=== PATIENT | female | born 1995 | race Caucasian/White ===

== ENCOUNTER 2023-09-26 07:31 | Inpatient (IN) ==
[2023-09-26] MEDS ORDERED: LIDOCAINE 1% LOCAL 20 ML VIAL INFIL PRN (08:04)
--- NOTE | 2023-09-26 08:15 | History & Physical Report ---
Date of Service September 26, 2023 Assessment & Plan (1) Encounter for induction of labor: Plan L&D order set placed, including, CBC w/out diff, blood bank hold, IV fluids (LR, 125 mL/hr), and Oxytocin (0.06 U/hr for labor augmentation), and Oxytocin, PRN (20 U/hr, for bleeding). External heart monitor and external tocodynamometer already placed. Patient will consider AROM, balloon catheter, epidural as she progresses. Admission and Anticipated Discharge Date Admission Date: September 26, 2023 History of Present Illness Chief Complaint: induction of labor Primary Care Provider: ALBERTINA PCP , 40 weeks, 5 days, confirmed via (ultrasound). Here for (Induction). There have been no complications with this . Has been attending OB appointments regularly. Currently taking docusate, Miralax, and pre- vitamins. Contractions: few, very far apart Fluid or Blood loss: none Movement: active Labs - Blood type, O+ - Antibody screen, neg - Hg, pending - Hct, pending - Wbc, pending - Plt, pending - Rubella, immune - VDRL/RPR, non-reactive - Gonorrhea, not detected - Chlamydia, not detected - HIV, non-reactive - HbSAg, non-reactive - GBS, neg - Glucose tolerance x 2, 105 (WNL) Allergies Allergy/AdvReac Type Severity Reaction Status Date / Time amoxicillin Allergy Hives Verified 09/23/23 10:45 Home Medications Medication Instructions Recorded Confirmed Type docusate sodium 100 mg capsule 100 mg PO DAILY 06/03/23 09/25/23 History (Colace) polyethylene glycol 3350 17 gram 17 g PO DAILY PRN Constipation 09/25/23 09/25/23 History oral powder packet (Miralax) [id number] 1 mg 1 tab PO DAILY 09/25/23 09/25/23 History tablet Past Med/Surg History Problem List (Updated 09/26/23 @ 08:49 by Martín Tomlinson MD) Encounter for induction of labor 40 weeks gestation of Dilated renal pelvis Seasonal allergies (02/12/20) Supervision of normal first Oligomenorrhea Medical History (Updated 09/26/23 @ 08:49 by Martín Tomlinson MD) Varicella vaccination COVID-19 (~2021) Surgical History [place] teeth extracted Family History (Updated 02/18/23 @ 09:56 by Sylwia Avila) Grandmother (Paternal) Breast cancer Grandfather (Maternal) Colorectal cancer Denies family history of Ovarian cancer Social History (Updated 02/18/23 @ 09:58 by Sylwia Avila) Smoking Status: Never smoker Do You Dip or Chew Tobacco: No; Hx Alcohol Use: No Hx Substance Use: No Preferred Language: Indonesian Communication Ability: Effective Computer Network Engineer Required: No Beliefs That Will Affect Care: None marital status: marital status details: Kyree Mays(28) [phone] Current Living Situation: Spouse Current Living Situation Comment: 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 current occupational status: employed current occupation: Speech therapist-private practice / [employer] Feels Safe at Home: Yes Safety Concerns: Feels Safe At This Time Diet: regular during the past year weight has: remained stable Physical Activity Frequency: Daily Physical Activity Frequency Comment: walks [facility] Assistive Devices: None Review of Systems Constitutional: no fever, no chills and no body aches Eyes: no diplopia and no worsening vision Ear, Nose, Mouth, Throat: no nasal congestion, no nasal discharge and no sore throat Respiratory: no cough, no chest congestion and no dyspnea Cardiovascular: no chest pain and no palpitations Gastrointestinal: + abdominal pain (cramping pain); no teddy sea, no vomiting (no vomiting since 8.30 pm last night) and no constipation (last BM this morning; has been on docusate and Miralax) Genitourinary: no dysuria, no urinary frequency (nothing against 3rd trimester background increase) and no urinary urgency Integumentary: no rash and no pruritus Neurologic: no tingling, no numbness and no headache(s) Physical Exam Constitutional: WD/WN, vitals as above Respiratory: normal respiratory effort, lungs clear to auscultation Cardiovascular: RRR, no murmur, no edema Extremities: normal capillary refill and + pedal edema (+1 edema in feet, edema of ); no calf tenderness Gastrointestinal (Abdomen): Inspection/Auscultation: abdomen normal to inspection, normal bowel sounds and + significant pannus (gravid uterus) Psychiatric: A+Ox3, euthymic affect Genitourinary: Manual OB Exam: + cervical dilation 4 cm, + cervical effacement 50% and + station -2 OB Exam Monitor Tracing: + external FHT monitor used, + external uterine monitor used, + category I and + normal FHT variability Results & Data Results & Data Vital Signs (Past 12 Hours) Vital Signs Temp Pulse Resp BP 09/26/23 07:54 106 H 121/76 09/26/23 07:51 36.6 C 106 H 16 /76 Supervising Physician Co-Signing Physician Notes Resident Physician Supervision Note: I interviewed and examined the patient. Discussed with Dr. Tomlinson and agree with findings and plan as documented in the note. Any exceptions or clarifications are listed here: 27yo @ 40 08/13, IOL for postdates. Carrillo bulb was placed last night, fell out overnight. Plan to start pitocin, ok for epidural when she desires. Documented By: Tricia Blanco, DO
[2023-09-26] MEDS: LACTATED RINGER'S 1,000 ML IV PRN (08:30)
[2023-09-26] MEDS: OXYTOCIN 30 UNITS/NSS 30 UNITS/500 ML BAG IV PRN ×2 (08:31→23:10)
[2023-09-26 08:46] LABS: Hematocrit (blood only) 37.3 % (37.0-47.0); Hemoglobin 12.4 g/dl (12.0-16.0); Mean Corpuscular Hemoglobin 27.9 pg (25.0-34.0); Mean Corpuscular Hgb Conc 33.2 g/dL (32.0-36.0); Mean Platelet Volume 10.3 fL (9.4-12.4); Platelet Count 289 K/uL (130-400); RDW Coefficient of Variation 13.6 % (11.5-14.5); RDW Standard Deviation 41.6 fL (36.4-46.3); Red Blood Count 4.44 M/uL (4.20-5.40); White Blood Count 15.56 K/ul (4.8-10.8)
--- NOTE | 2023-09-26 13:21 | Anesthesiology Consultation ---
Date of Service September 26, 2023 Assessment & Plan Chart Review Chart Review: Acceptable Risk for Labor Epidural Consults Requested none History Height/Weight Height: 5 ft 4 in Weight: 82.554 kg Allergies Allergy/AdvReac Type Severity Reaction Status Date / Time amoxicillin Allergy Hives Verified 09/23/23 10:45 Medications Home Medications Medication Instructions Recorded Confirmed Last Taken docusate sodium 100 mg capsule 100 mg PO DAILY 06/03/23 09/26/23 09/26/23 05:30 (Colace) polyethylene glycol 3350 17 gram 17 g PO DAILY PRN Constipation 09/25/23 09/26/23 09/26/23 05:30 oral powder packet (Miralax) [id number] 1 mg 1 tab PO DAILY 09/25/23 09/26/23 09/26/23 05:30 tablet Active Medications Generic Name Dose Route Start Last Admin Trade Name Freq PRN Reason Stop Dose Admin Oxytocin 30 units in 500 mls @ 17 mls/hr 09/26/23 08:05 09/26/23 12:30 Pitocin 30 Units/Nss IV 09/28/23 08:04 1.02 units/hr .Q24H PRN 17 mls/hr Labor Induction/Augmentation Titration Protocol 1.02 UNITS/HR Lactated Ringer's 1,000 mls @ 125 mls/hr 09/26/23 08:04 09/26/23 08:30 Lr IV 09/28/23 08:03 125 mls/hr .Q8H PRN Administration L&D Protocol Protocol Past Medical History Medical History (Updated 09/26/23 @ 08:49 by Martín Tomlinson MD) Varicella vaccination COVID-19 (~2020) Past Family History Family History (Updated 02/18/23 @ 09:56 by Sylwia Avila) Grandmother (Paternal) Breast cancer Grandfather (Maternal) Colorectal cancer Denies family history of Ovarian cancer Past Surgical History Surgical History [place] teeth extracted Social History Smoking Status: Never smoker Do You Dip or Chew Tobacco: No Hx Alcohol Use: No Hx Substance Use: No substance use type: does not use Physical Exam Vital Signs Last Vital Signs Temp 36.6 C 09/26/23 10:56 Pulse 83 09/26/23 13:18 Resp 16 09/26/23 10:56 BP 138/78 09/26/23 13:14 Pulse Ox 99 09/26/23 13:18 Testing Laboratory Results 09/26/23 08:24
[2023-09-26] MEDS ORDERED: NALBUPHINE HCL 5 MG in SYRINGE 0 ML IV PRN ×2 (13:23→13:55)
[2023-09-26] MEDS ORDERED: diphenhydrAMINE 50 MG/ML VIAL IV PRN ×2 (13:23→13:55)
[2023-09-26] MEDS ORDERED: SODIUM CHLORIDE 0.9% PF INJ 10 ML VIAL EPI PRN ×2 (13:23→13:55)
[2023-09-26] MEDS ORDERED: fentaNYL citrate PF 100 MCG/2 ML VIAL EPI PRN ×2 (13:23→13:55)
[2023-09-26] MEDS ORDERED: BUPIVACAINE 0.25% PF 30 ML VIAL EPI PRN ×2 (13:23→13:55)
[2023-09-26] MEDS ORDERED: ePHEDrine sulfate 50 MG/ML AMP IV PRN ×2 (13:23→13:55)
[2023-09-26] MEDS ORDERED: NALOXONE HCL 0.4 MG/1 ML VIAL/CARP IV PRN ×2 (13:23→13:55)
[2023-09-26] MEDS ORDERED: ROPIVACAINE 0.5% PF 5 MG/ML 20 ML VIAL EPI PRN ×2 (13:23→13:55)
[2023-09-26] MEDS ORDERED: LIDOCAINE 2% MPF LOCAL 5 ML VIAL EPI PRN ×2 (13:23→13:55)
[2023-09-26] MEDS ORDERED: NALOXONE HCL 1 MG in SODIUM CHLORIDE 0.9% 1,000 ML IV PRN ×2 (13:23→13:55)
[2023-09-26] MEDS: fentANYL 2 MCG/ML BUPIVacaine 0.125%-NSS 100ML BAG ONE (13:46)
[2023-09-26] MEDS: LIDOCAINE 2%/EPINEPHRINE 1:200,000 20 ML PF ONE (13:49)
[2023-09-26] MEDS ORDERED: fentANYL 2 MCG/ML BUPIVacaine 0.125%-NSS 100ML BAG EPI PRN (13:55)
--- NOTE | 2023-09-26 14:15 | Labor Progress Brief Note ---
Date of Service September 26, 2023 Subjective Comfortable with epidural. FHT Cat 1 [place] Q 2 SVE 5/70/-2 AROM mec stained. Continue pitocin. Assessment & Plan Admission and Anticipated Discharge Date Admission Date: September 26, 2023 Results & Data Vital Signs (Past 12 Hours) Vital Signs Temp Pulse Resp BP Pulse Ox 09/26/23 14:09 87 133/86 09/26/23 14:08 89 99 09/26/23 14:03 86 98 09/26/23 13:58 85 99 09/26/23 13:53 94 H 99 09/26/23 13:51 96 H 130/73 09/26/23 13:50 88 123/73 09/26/23 13:48 98 09/26/23 13:48 99 H 09/26/23 13:48 92 H 124/74 09/26/23 13:45 88 126/73 09/26/23 13:43 91 H 99 09/26/23 13:40 75 127/73 09/26/23 13:38 79 126/68 100 09/26/23 13:33 85 100 09/26/23 13:31 86 133/68 09/26/23 13:28 95 H 99 09/26/23 13:23 84 99 09/26/23 13:18 83 99 09/26/23 13:14 86 138/78 09/26/23 13:01 93 H 128/78 09/26/23 12:45 92 H 128/73 09/26/23 12:32 95 H 130/82 09/26/23 12:16 91 H 130/93 09/26/23 12:09 99 H 130/78 09/26/23 11:45 89 127/88 09/26/23 11:30 89 124/75 09/26/23 11:15 98 H 129/79 09/26/23 11:06 87 127/81 09/26/23 11:01 87 133/86 09/26/23 10:56 16 09/26/23 10:56 36.6 C 16 09/26/23 10:46 89 129/86 09/26/23 10:30 93 H 125/68 09/26/23 10:27 90 129/80 09/26/23 09:45 90 130/75 09/26/23 07:54 106 H 121/76 09/26/23 07:51 36.6 C 106 H 16 Coding Level of Care Code None
[2023-09-26] MEDS ORDERED: NURSING L&D Epidural Breakthrough Pain Update ONE (14:45)
[2023-09-26] MEDS: fentaNYL citrate PF 100 MCG/2 ML VIAL ONE (14:56)
[2023-09-26] MEDS: ePHEDrine sulfate 50 MG/ML AMP ONE (14:56)
[2023-09-26] MEDS: BUPIVACAINE 0.25% PF 30 ML VIAL ONE (14:58)
--- NOTE | 2023-09-26 20:05 | Labor Progress Brief Note ---
Date of Service September 26, 2023 Subjective Urge to push. FHT Cat 1 [place] Q2 SVE 10/100/+1 station, actively pushing. Continue pushing. Assessment & Plan Admission and Anticipated Discharge Date Admission Date: September 26, 2023 Results & Data Vital Signs (Past 12 Hours) Vital Signs Temp Pulse Resp BP Pulse Ox O2 Del Method 09/26/23 20:03 99 H 94 09/26/23 20:00 85 20 98 09/26/23 19:55 98 H 99 09/26/23 19:50 101 H 92 09/26/23 19:45 87 98 09/26/23 19:44 95 H 87 L 09/26/23 19:40 100 H 100 09/26/23 19:38 84 130/80 09/26/23 19:35 83 98 09/26/23 19:30 94 H 18 100 09/26/23 19:25 106 H 100 09/26/23 19:23 88 128/75 09/26/23 19:20 106 H 98 09/26/23 19:15 88 100 09/26/23 19:10 37.0 C 18 09/26/23 19:10 Room Air 09/26/23 19:10 89 99 09/26/23 19:09 93 H 145/84 H 09/26/23 19:05 84 100 09/26/23 19:00 91 H 100 09/26/23 18:55 82 100 09/26/23 18:53 76 112/58 L 09/26/23 18:50 82 100 09/26/23 18:45 85 100 09/26/23 18:40 78 100 09/26/23 18:39 80 118/64 09/26/23 18:35 86 100 09/26/23 18:30 93 H 100 09/26/23 18:27 16 09/26/23 18:27 36.7 C 16 09/26/23 18:24 81 118/67 09/26/23 18:23 93 H 100 09/26/23 18:18 83 100 09/26/23 18:13 100 H 100 09/26/23 18:08 100 09/26/23 18:08 88 09/26/23 18:08 90 127/88 09/26/23 18:03 78 100 09/26/23 17:58 98 H 85 L 09/26/23 17:53 86 129/85 100 05 17:48 90 100 05 17:43 93 H 100 05 17:39 80 124/86 05 17:38 96 H 100 05 17:33 81 100 05 17:28 81 100 05 17:24 79 128/59 L 09/26/23 17:23 91 H 99 09/26/23 17:20 81 142/68 H 09/26/23 17:18 81 98 09/26/23 17:13 84 99 05 17:08 82 100 09/26/23 17:03 93 H 100 09/26/23 17:00 16 09/26/23 17:00 36.7 C 16 09/26/23 16:58 101 H 100 09/26/23 16:53 85 100 09/26/23 16:48 86 100 09/26/23 16:43 76 100 09/26/23 16:38 83 116/72 100 09/26/23 16:33 91 H 98 09/26/23 16:28 89 100 05 16:23 102 H 105/59 L 100 09/26/23 16:18 87 99 09/26/23 16:13 95 H 100 09/26/23 16:09 77 110/60 09/26/23 16:08 79 100 09/26/23 16:03 68 100 09/26/23 15:58 79 100 09/26/23 15:54 72 112/61 09/26/23 15:53 72 99 09/26/23 15:48 81 99 05 15:45 18 09/26/23 15:45 36.7 C 18 09/26/23 15:43 89 100 05 15:39 85 109/70 05 15:38 87 98 05 15:33 75 100 05 15:28 75 99 05 15:24 68 114/60 05 15:23 82 100 05 15:18 84 97 09/26/23 15:13 76 100 05 15:09 74 107/56 L 09/26/23 15:08 87 100 05/2024 15:03 71 99 05/20/24 14:58 71 100 05/2024 14:53 78 107/57 L 100 05 14:48 73 96 05/2024 14:43 71 99 05/2024 14:39 83 113/69 05/2024 14:38 80 99 052024 14:33 78 99 05/2024 14:28 85 99 05/2024 14:24 76 134/82 05/2024 14:23 81 99 05/2024 14:18 80 100 05/20 14:13 85 100 05/20 14:09 87 133/86 05/ 14:08 89 99 05 14:03 86 98 05 13:58 85 99 05 13:53 94 H 99 05 13:51 96 H 130/73 05/2024 13:50 88 123/73 052024 13:48 98 05 13:48 99 H 05 13:48 92 H 124/74 05/2024 13:45 88 126/73 05/20/24 13:43 91 H 99 05/20 13:40 75 127/73 05/20/24 13:38 79 126/68 100 05/20 13:33 85 100 05 13:31 86 133/68 05/2024 13:28 95 H 99 052024 13:23 84 99 05 13:18 83 99 052024 13:14 86 138/78 05/2024 13:01 93 H 128/78 05/20/24 12:45 92 H 128/73 05/20/24 12:32 95 H 130/82 05/20/24 12:16 91 H 130/93 05/20/24 12:09 99 H 130/78 05/20/24 11:45 89 127/88 05/20/24 11:30 89 124/75 05/20/24 11:15 98 H 129/79 05/20/24 11:06 87 127/81 05/20/24 11:01 87 133/86 05/20/24 10:56 16 05/2024 10:56 36.6 C 16 09/26/23 10:46 89 129/86 09/26/23 10:30 93 H 125/68 09/26/23 10:27 90 129/80 09/26/23 09:45 90 130/75 Coding Level of Care Code None
[2023-09-26] MEDS: fentANYL 2 MCG/ML BUPIVacaine 0.125%-NSS 100ML BAG EPI PRN (20:13)
[2023-09-26] MEDS: METHYLERGONOVINE MALEATE 0.2 MG/ML AMP IM PRN (22:53)
[2023-09-26] MEDS: CARBOPROST TROMETHAMINE 250 MCG/ML AMPUL IM ONE (22:55)
[2023-09-26] MEDS: TRANEXAMIC ACID / 0.7% NACL 1,000 MG/100 ML BAG IV PRN (22:57)
[2023-09-26] MEDS ORDERED: SODIUM CHLORIDE 0.9% 250 ML IV PRN (23:06)
[2023-09-26] MEDS: ONDANSETRON INJ 2 MG/ML 2 ML VIAL ONE (23:12)
[2023-09-26] MEDS: miSOPROStoL 200 MCG TAB PR ONE ×2 (23:20)
[2023-09-26] MEDS: OXYTOCIN 30 UNITS/LR 1,003 ML IV SCH (23:40)
[2023-09-27 00:01] LABS: Hematocrit (blood only) 33.9 % (37.0-47.0); Hemoglobin 11.1 g/dl (12.0-16.0); Mean Corpuscular Hemoglobin 27.8 pg (25.0-34.0); Mean Corpuscular Hgb Conc 32.7 g/dL (32.0-36.0); Mean Platelet Volume 10.4 fL (9.4-12.4); Platelet Count 318 K/uL (130-400); RDW Coefficient of Variation 13.9 % (11.5-14.5); RDW Standard Deviation 42.6 fL (36.4-46.3); Red Blood Count 3.99 M/uL (4.20-5.40); White Blood Count 23.65 K/ul (4.8-10.8)
--- NOTE | 2023-09-27 00:04 | Delivery Summary ---
Vaginal Delivery Summary Date of Service September 27, 2023 Vaginal Delivery Summary and 3rd Degree LAC Vaginal Delivery Summary: Pre-delivery diagnoses: 27yo @ 40 5/7, postdates induction of labor Post-delivery diagnoses: same + 3rd degree perineal laceration, hemorrhage Procedure: spontaneous vaginal delivery Surgeon: Tricia Blanco DO Complications: none Findings: Viable female . Apgars: 8/8. Weight pending, please see nursery records QBL: [id number] Description of delivery: The patient progressed to complete with epidural anesthesia. She then began to push. She spontaneously vaginally delivered a viable from the cephalic presentation. The head delivered in ALEXANDRE position. The anterior shoulder delivered, followed by the posterior shoulder, followed by the body. The baby was placed on mother's abdomen and the cord was doubly clamped and cut. The baby was then handed immediately to nursery team, where a spontaneous cry was heard. The placenta was delivered spontaneously intact with a 3-vessel cord. The uterus and vagina were swept of clots and debris. IV pitocin was given. The uterus did not immediately become firm - fundal massage was performed, it firmed somewhat. The uterus was swept again, and clots were removed - 2-3 passes of Banjo curette were used, adequate uterine cry. Bladder emptied with red rubber catheter. Uterus at this point had less tone than before and was continuing to bleed - therefore pitocin, methergine, hemabate, cytotec, and TXA were given. I verbally ordered labs and massive transfusion protocol and anesthesiologist was stat paged to bedside. The cervix was evaluated by walking around the cervix with ring forceps - no lacerations or deep vaginal sulcal tears noted. JLUIS device was inserted into the uterus, balloon inflated to 120cc sterile water, and the device was connected to wall suction. There was a 3rd degree perineal laceration, with complete tear of the anal sphincter. The uterine bleeding had slowed significantly at this point, and therefore the 3rd degree tear was repaired: the anal sphincter was grasped with Allis clamps, and reapproximated with [id number] 3-0 Chromic sutures. The remaining perineal laceration was repaired with 3-0 Vicryl in standard fashion. At this time, bleeding had stopped - no bleeding from vagina or from perineal laceration. Blood approximately fci through the JLUIS tubing at 1.5h after delivery. Patient was awake and talking throughout the repair and the above events - I verbally consented her to go to the OR if needed with potential need for hysterectomy as a last resort to stop bleeding, however given that her bleeding and BP stabilized with resuscitative measures in the delivery room, made the decision to monitor at L&D overnight and retain the JLUIS in place until morning. Will give Ancef as prophylaxis d/t retained JLUIS device. Started with 2u PRBC, first Hgb 11.1 after hemorrhage, (down from 12.4 on admission). Will recheck H/H after 2u and then recheck again in AM. Will continue pitocin drip overnight. I debriefed patient after the above events, and then went to see FOB and baby in nursery and debriefed him also. Sponge, needle and instrument counts were correct x 2. Tricia Blanco DO [facility] Vaginal Delivery Charge Vaginal Delivery Codes: 17926 global code for the antepartum, delivery, and post- Delivery Type Details: and 3rd Degree LAC
[2023-09-27 00:18] LABS: Fibrinogen 446 mg/dl (184-400); INR 0.9 (0.9-1.1); Partial Thromboplastin Ratio 0.9; Partial Thromboplastin Time 23 Seconds (21-31); Prothrombin Time 9.8 Seconds (9.0-12.0)
[2023-09-27] MEDS: fentaNYL citrate PF 100 MCG/2 ML VIAL EPI STA ×3 (00:35→03:59)
[2023-09-27] MEDS: LIDOCAINE 2%/EPINEPHRINE 1:200,000 20 ML PF EPI STA ×3 (00:35→04:00)
[2023-09-27] MEDS: SODIUM CHLORIDE 0.9% PF INJ 10 ML VIAL EPI STA ×3 (00:36→04:00)
[2023-09-27] MEDS: BUPIVACAINE 0.25% PF 30 ML VIAL EPI STA ×3 (00:36→03:59)
[2023-09-27] MEDS: SODIUM CHLORIDE 0.9% PF INJ 10 ML VIAL ONE (00:36)
[2023-09-27] MEDS ORDERED: ACETAMINOPHEN 325 MG TAB PO PRN (01:42)
[2023-09-27] MEDS ORDERED: oxyCODONE/ACETAMINOPHEN 5mg/325mg TAB PO PRN (01:42)
[2023-09-27] MEDS ORDERED: OXYTOCIN 30 UNITS/NSS 30 UNITS/500 ML BAG IV PRN (01:42)
[2023-09-27] MEDS ORDERED: HYDROCORTISONE ACETATE 25 MG SUPP PR PRN (01:42)
[2023-09-27] MEDS ORDERED: BENZOCAINE 20% SPRY 85 APPLN/85 GM CAN EXT PRN (01:42)
[2023-09-27] MEDS: miSOPROStoL 200 MCG TAB ONE (01:54)
[2023-09-27] MEDS: TRANEXAMIC ACID / 0.7% NACL 1000MG/100ML BAG IV ONE (01:54)
[2023-09-27] MEDS ORDERED: diphenhydrAMINE 50 MG/ML VIAL IV PRN (02:03)
[2023-09-27] MEDS ORDERED: NALBUPHINE HCL 5 MG in SYRINGE 0 ML IV PRN (02:03)
[2023-09-27] MEDS ORDERED: LIDOCAINE 2% MPF LOCAL 5 ML VIAL EPI PRN (02:03)
[2023-09-27] MEDS ORDERED: fentaNYL citrate PF 100 MCG/2 ML VIAL EPI PRN (02:03)
[2023-09-27] MEDS ORDERED: NALOXONE HCL 0.4 MG/1 ML VIAL/CARP IV PRN (02:03)
[2023-09-27] MEDS ORDERED: SODIUM CHLORIDE 0.9% PF INJ 10 ML VIAL EPI PRN (02:03)
[2023-09-27] MEDS ORDERED: ePHEDrine sulfate 50 MG/ML AMP IV PRN (02:03)
[2023-09-27] MEDS ORDERED: NALOXONE HCL 1 MG in SODIUM CHLORIDE 0.9% 1,000 ML IV PRN (02:03)
[2023-09-27] MEDS ORDERED: BUPIVACAINE 0.25% PF 30 ML VIAL EPI PRN (02:03)
[2023-09-27] MEDS ORDERED: ROPIVACAINE 0.5% PF 5 MG/ML 20 ML VIAL EPI PRN (02:03)
[2023-09-27] MEDS: ceFAZolin 1000MG 1,000 MG/7.5 ML SYR IV SCH (02:21)
[2023-09-27] MEDS: fentANYL 2 MCG/ML BUPIVacaine 0.125%-NSS 100ML BAG EPI PRN (02:22)
[2023-09-27 02:25] LABS: Hematocrit (blood only) 35.9 % (37.0-47.0); Hemoglobin 12.1 g/dl (12.0-16.0)
[2023-09-27] MEDS: DIPHTHER/TETAN/PERTUS Vaccine (Tdap, Adol/Adult) 0.5mL IM ONE (02:30)
--- NOTE | 2023-09-27 06:18 | Obstetrical Progress Note ---
Date of Service <Martín Tomlinson MD - Last Filed: 09/27/23 07:21> September 27, 2023 Assessment & Plan <Martín Tomlinson MD - Last Filed: 09/27/23 07:21> (1) hemorrhage: Plan 27 yo , status post on 09/27/23, w/ 3rd degree laceration and PPH. - Pt doing well clinically. Feels well today. Eating well, voiding well, ambulating well. Pain well controlled with PRN pain meds. - Routine care -- OOB, ambulation, diet progression as tolerated Vital Signs reviewed and WNL. (Tmax at 36.7), with the exception of persistent mild tachycardia since delivery. Hemoglobin Reviewed. 12.4 (09/25, morning), 11.1 (09/25, 11 pm), 12.1 (today), 10.3 (today, Pt transfused w/ 2 units of PRBC's WBC elevated: 15.6 23.7 33.2 Blood Type: O+, GBS-, Rubella Immune. Encourage ambulation, monitor and control pain with Motrin PRN, resume regular diet, monitor lochia. Breast feeding encouraged. After discharge will have 6 week follow-up with Dr. Blanco. Pt counselled on discharge instructions, but advised to stay an additional night before going home. <Tricia Blanco DO - Last Filed: 09/27/23 08:05> (1) hemorrhage: Subjective <Martín Tomlinson MD - Last Filed: 09/27/23 07:21> Ambulation: limited ambulation Voiding: bustos catheter in place Passing Gas:: Yes Diet Tolerance:: NPO (has not had anything to eat since delivery) Lochia:: Small Feeding Type:: breast feeding Current Pain Level(1-10): 2 (more numbness than pain at this point, has still been on epidural) Constitutional: no fever, no chills or no body aches Eyes: no diplopia or no worsening vision Ear, Nose, Mouth, Throat: no nasal congestion, no nasal discharge or no sore throat Respiratory: no cough, no chest congestion or no dyspnea Cardiovascular: no chest pain or no palpitations Gastrointestinal: + abdominal pain (cramping pain), + vomiting (vomited after delivery last night) and + diarrhea/loose stools (diarrhea at ~ 3 am); no nausea or no constipation (last BM this morning; has been on docusate and Miralax) Genitourinary (female): no dysuria, no urinary frequency (pt w/ Bustos in place) or no urinary urgency Integumentary: no rash or no pruritus Neurologic: + localized weakness (unable to move l. leg, can only wiggle left toes), + tingling and + numbness (b/l numbness felt but worse on l. side); no headache(s) Physical Exam <Martín Tomlinson MD - Last Filed: 09/27/23 07:21> Constitutional WD/WN, vitals as above Respiratory normal respiratory effort, lungs clear to auscultation Cardiovascular RRR, no murmur, no edema Extremities: normal capillary refill and + pedal edema (+1 edema in feet, edema of ); no calf tenderness Gastrointestinal (Abdomen) Inspection/Auscultation: abdomen normal to inspection and normal bowel sounds Neurologic + does not move all extremities Psychiatric A+Ox3, euthymic affect Results & Data <Martín Tomlinson MD - Last Filed: 09/27/23 07:21> Vital Signs (Past 12 Hours) Vital Signs Temp Pulse Resp BP Pulse Ox O2 Del Method 09/27/23 06:11 104 H 98 09/27/23 06:08 107 H 117/63 09/27/23 06:06 110 H 92 09/27/23 06:01 114 H 96 09/27/23 05:56 95 H 97 09/27/23 05:53 100 H 124/60 09/27/23 05:52 100 H 88 L 09/27/23 05:51 99 H 96 09/27/23 05:46 96 H 97 09/27/23 05:41 109 H 98 09/27/23 05:38 109 H 119/59 L 09/27/23 05:36 94 H 98 09/27/23 05:31 110 H 97 09/27/23 05:26 92 H 96 09/27/23 05:23 103 H 125/60 09/27/23 05:21 96 H 93 09/27/23 05:16 93 H 98 09/27/23 05:11 92 H 98 09/27/23 05:08 90 118/63 09/27/23 05:06 107 H 97 09/27/23 05:01 84 96 09/27/23 04:56 115 H 96 09/27/23 04:53 86 119/59 L 09/27/23 04:51 93 H 97 09/27/23 04:46 88 98 09/27/23 04:41 97 H 98 09/27/23 04:38 103 H 124/59 L 09/27/23 04:36 99 H 99 09/27/23 04:31 97 H 98 09/27/23 04:29 99 H 93 09/27/23 04:26 96 H 98 09/27/23 04:24 86 132/60 09/27/23 04:23 101 H 92 09/27/23 04:21 103 H 95 09/27/23 04:16 92 H 97 09/27/23 04:15 36.9 C 18 09/27/23 04:15 18 09/27/23 04:15 36.9 C 18 09/27/23 04:11 95 H 96 09/27/23 04:08 83 93/54 L 09/27/23 04:07 82 92 09/27/23 04:06 82 97 09/27/23 04:01 86 95 09/27/23 03:58 93 H 93 09/27/23 03:56 107 H 96 09/27/23 03:53 85 91/50 L 09/27/23 03:51 88 95 09/27/23 03:47 81 94 09/27/23 03:46 83 96 09/27/23 03:41 88 97 09/27/23 03:38 80 96/53 L 09/27/23 03:36 83 96 09/27/23 03:31 98 H 95 09/27/23 03:26 86 98 09/27/23 03:23 86 110/57 L 09/27/23 03:21 87 97 09/27/23 03:16 103 H 94 09/27/23 03:13 85 94 09/27/23 03:11 86 94 09/27/23 03:09 88 124/58 L 09/27/23 03:06 88 95 09/27/23 03:04 86 94 09/27/23 03:01 88 95 05/21/24 02:58 88 94 09/27/23 02:56 89 93 09/27/23 02:54 86 117/58 L 09/27/23 02:52 88 94 09/27/23 02:51 89 95 09/27/23 02:47 87 94 09/27/23 02:46 86 95 09/27/23 02:41 89 96 09/27/23 02:40 93 H 92 09/27/23 02:39 117 H 157/98 H 09/27/23 02:36 94 H 96 09/27/23 02:34 95 H 94 09/27/23 02:31 118 H 97 09/27/23 02:30 18 09/27/23 02:30 36.8 C 18 09/27/23 02:26 100 H 96 09/27/23 02:21 112 H 97 09/27/23 02:19 131 H 93 09/27/23 02:16 106 H 97 09/27/23 02:11 90 96 09/27/23 02:10 97 H 93 09/27/23 02:09 92 H 105/55 L 09/27/23 02:06 85 96 09/27/23 02:01 101 H 96 09/27/23 01:56 102 H 97 09/27/23 01:55 88 18 97 09/27/23 01:53 101 H 109/64 09/27/23 01:51 113 H 98 09/27/23 01:50 18 09/27/23 01:50 36.5 C 18 09/27/23 01:46 94 H 96 09/27/23 01:41 92 H 97 09/27/23 01:39 88 110/63 09/27/23 01:36 85 96 09/27/23 01:31 102 H 98 09/27/23 01:26 102 H 98 09/27/23 01:25 80 18 96/53 L 09/27/23 01:23 99 H 130/77 09/27/23 01:21 114 H 97 09/27/23 01:18 97 H 122/75 09/27/23 01:16 98 09/27/23 01:16 117 H 09/27/23 01:16 109 H 89 L 09/27/23 01:15 37.2 C 09/27/23 01:13 115 H 132/86 09/27/23 01:12 37.1 C 18 132/86 09/27/23 01:11 101 H 98 09/27/23 01:08 107 H 133/81 09/27/23 01:06 108 H 96 09/27/23 01:02 103 H 116/75 09/27/23 01:01 112 H 98 09/27/23 00:58 116 H 108/68 09/27/23 00:57 124 H 93 09/27/23 00:56 122 H 98 09/27/23 00:55 98 H 18 95 09/27/23 00:51 127 H 99 09/27/23 00:46 117 H 97 09/27/23 00:43 109 H 134/75 09/27/23 00:41 105 H 98 09/27/23 00:40 36.5 C 98 H 18 95 09/27/23 00:38 125 H 123/73 09/27/23 00:36 127 H 98 09/27/23 00:33 117 H 133/87 09/27/23 00:31 123 H 99 09/27/23 00:26 124 H 98 09/27/23 00:25 86 18 98 09/27/23 00:23 128/62 09/27/23 00:21 109 H 100 09/27/23 00:18 108 H 117/63 09/27/23 00:16 115 H 100 09/27/23 00:12 18 09/27/23 00:12 37.1 C 18 09/27/23 00:11 100 09/27/23 00:11 108 H 09/27/23 00:11 110 H 122/74 09/27/23 00:10 86 18 110/57 L 09/27/23 00:09 103 H 135/76 09/27/23 00:08 37.1 C 18 09/27/23 00:06 120 H 100 09/27/23 00:01 112 H 127/65 100 09/27/23 00:00 104 H 125/69 09/26/23 23:57 90 126/65 09/26/23 23:56 95 H 100 09/26/23 23:55 18 09/26/23 23:55 90 120/72 09/26/23 23:54 101 H 119/66 09/26/23 23:51 120 H 100 05 23:47 82 105/81 09/26/23 23:46 122 H 100 09/26/23 23:41 131 H 100 09/26/23 23:36 129 H 100 09/26/23 23:31 133 H 100 09/26/23 23:30 36.9 C 134 H 111/59 L 09/26/23 23:29 132 H 20 09/26/23 23:29 180/108 H 09/26/23 23:26 139 H 100 09/26/23 23:25 131 H 117/55 L 09/26/23 23:22 141 H 84/62 L 09/26/23 23:21 136 H 100 09/26/23 23:19 130 H 82/57 L 09/26/23 23:16 138 H 100 09/26/23 23:15 137 H 85/52 L 09/26/23 23:11 145 H 100 09/26/23 23:06 159 H 100 09/26/23 23:01 130 H 98 09/26/23 22:56 112 H 97 09/26/23 22:53 106 H 128/88 09/26/23 22:52 100 H 134/83 09/26/23 22:51 94 H 96 09/26/23 22:46 114 H 97 09/26/23 22:42 112 H 92 09/26/23 22:41 93 H 96 09/26/23 22:36 95 H 96 09/26/23 22:35 107 H 88 L 09/26/23 22:31 93 H 96 09/26/23 22:30 18 09/26/23 22:30 18 09/26/23 22:27 97 H 89 L 09/26/23 22:26 90 97 05 22:24 80 171/65 H 09/26/23 22:21 85 83 L 09/26/23 22:16 83 96 09/26/23 22:15 93 H 20 89 L 09/26/23 22:11 80 95 09/26/23 22:09 86 91 09/26/23 22:08 83 121/57 L 09/26/23 22:06 75 97 09/26/23 22:03 98 H 89 L 09/26/23 22:01 86 97 05 22:00 18 05/20/24 22:00 18 24 21:56 82 97 0524 21:53 78 132/64 05 21:51 82 97 24 21:46 92 H 87 L 0524 21:45 92 H 18 96 24 21:40 93 H 93 24 21:38 90 144/97 H 93 24 21:35 93 H 96 24 21:31 97 H 93 0524 21:30 92 H 18 97 0524 21:25 95 H 99 0524 21:23 90 114/58 L 09/26/23 21:20 94 H 98 09/26/23 21:15 36.8 C 86 98 09/26/23 21:10 92 H 97 09/26/23 21:08 94 H 113/59 L 09/26/23 21:05 95 H 97 09/26/23 21:00 90 18 98 09/26/23 20:55 94 H 96 0524 20:53 87 111/70 05 20:50 92 H 97 24 20:45 93 H 96 24 20:40 97 0524 20:40 97 H 24 20:40 98 H 132/88 0524 20:35 100 H 96 24 20:30 91 H 18 96 0524 20:25 97 H 97 24 20:23 83 137/61 0524 20:20 77 97 0524 20:19 103 H 91 052024 20:15 100 H 18 98 052024 20:11 81 128/60 052024 20:10 106 H 96 0524 20:05 91 H 98 052024 20:03 99 H 94 0524 20:00 85 20 98 052024 19:55 98 H 99 052024 19:50 101 H 92 052024 19:45 87 98 052024 19:44 95 H 87 L 0524 19:40 100 H 100 052024 19:38 84 130/80 05/20/24 19:35 83 98 09/26/23 19:30 94 H 18 100 09/26/23 19:25 106 H 100 09/26/23 19:23 88 128/75 09/26/23 19:20 106 H 98 09/26/23 19:15 88 100 09/26/23 19:10 37.0 C 18 09/26/23 19:10 Room Air 09/26/23 19:10 89 99 09/26/23 19:09 93 H 145/84 H 09/26/23 19:05 84 100 09/26/23 19:00 91 H 100 09/26/23 18:55 82 100 09/26/23 18:53 76 112/58 L 09/26/23 18:50 82 100 09/26/23 18:45 85 100 09/26/23 18:40 78 100 09/26/23 18:39 80 118/64 09/26/23 18:35 86 100 09/26/23 18:30 93 H 100 09/26/23 18:27 16 09/26/23 18:27 36.7 C 16 09/26/23 18:24 81 118/67 09/26/23 18:23 93 H 100 09/26/23 18:18 83 100 Supervising Physician <Tricia Blanco DO - Last Filed: 09/27/23 08:05> Co-Signing Physician Notes Resident Physician Supervision Note: I interviewed and examined the patient. Discussed with Dr. Tomlinson and agree with findings and plan as documented in the note. Any exceptions or clarifications are listed here: PPD#1 much improved. Is now s/p 2u PRBC, vitals and Hgb stable, JLUIS and bustos have been removed and lochia is minimal. Will allow her to eat this morning and repeat CBC at noon today. Documented By: Tricia Blanco DO
--- NOTE | 2023-09-27 06:38 | Obstetrical Progress Note ---
Date of Service September 27, 2023 Assessment & Plan Admission and Anticipated Discharge Date Admission Date: September 26, 2023 Subjective Awake, sitting in bed, cheeks pink. Talking. Disconnected suction from JLUIS device. 200ml blood was in JLUIS tubing. Removed 60ml (of total 120ml) of sterile water from balloon. Will monitor for the next 15 min for bleeding, then will remove the remainder of the water from the balloon and then intend to remove JLUIS device at 7am. 900cc urine output into bustos since bustos placement after delivery. Morning H/H pending. Pulse 92, BP 119/65. Results & Data Vital Signs (Past 12 Hours) Vital Signs Temp Pulse Resp BP Pulse Ox O2 Del Method 09/27/23 06:31 92 H 99 09/27/23 06:26 93 H 99 09/27/23 06:23 100 H 119/65 09/27/23 06:21 107 H 96 09/27/23 06:16 104 H 97 09/27/23 06:11 104 H 98 09/27/23 06:08 107 H 117/63 09/27/23 06:06 110 H 92 09/27/23 06:01 114 H 96 09/27/23 05:56 95 H 97 09/27/23 05:53 100 H 124/60 09/27/23 05:52 100 H 88 L 09/27/23 05:51 99 H 96 09/27/23 05:46 96 H 97 09/27/23 05:41 109 H 98 09/27/23 05:38 109 H 119/59 L 09/27/23 05:36 94 H 98 09/27/23 05:31 110 H 97 09/27/23 05:26 92 H 96 09/27/23 05:23 103 H 125/60 09/27/23 05:21 96 H 93 09/27/23 05:16 93 H 98 09/27/23 05:11 92 H 98 09/27/23 05:08 90 118/63 09/27/23 05:06 107 H 97 09/27/23 05:01 84 96 09/27/23 04:56 115 H 96 09/27/23 04:53 86 119/59 L 09/27/23 04:51 93 H 97 09/27/23 04:46 88 98 09/27/23 04:41 97 H 98 09/27/23 04:38 103 H 124/59 L 09/27/23 04:36 99 H 99 09/27/23 04:31 97 H 98 09/27/23 04:29 99 H 93 09/27/23 04:26 96 H 98 09/27/23 04:24 86 132/60 09/27/23 04:23 101 H 92 09/27/23 04:21 103 H 95 09/27/23 04:16 92 H 97 09/27/23 04:15 36.9 C 18 09/27/23 04:15 18 09/27/23 04:15 36.9 C 18 09/27/23 04:11 95 H 96 09/27/23 04:08 83 93/54 L 09/27/23 04:07 82 92 09/27/23 04:06 82 97 09/27/23 04:01 86 95 09/27/23 03:58 93 H 93 09/27/23 03:56 107 H 96 09/27/23 03:53 85 91/50 L 09/27/23 03:51 88 95 09/27/23 03:47 81 94 09/27/23 03:46 83 96 09/27/23 03:41 88 97 09/27/23 03:38 80 96/53 L 09/27/23 03:36 83 96 09/27/23 03:31 98 H 95 09/27/23 03:26 86 98 09/27/23 03:23 86 110/57 L 09/27/23 03:21 87 97 09/27/23 03:16 103 H 94 09/27/23 03:13 85 94 09/27/23 03:11 86 94 09/27/23 03:09 88 124/58 L 09/27/23 03:06 88 95 09/27/23 03:04 86 94 09/27/23 03:01 88 95 09/27/23 02:58 88 94 09/27/23 02:56 89 93 09/27/23 02:54 86 117/58 L 09/27/23 02:52 88 94 09/27/23 02:51 89 95 09/27/23 02:47 87 94 09/27/23 02:46 86 95 09/27/23 02:41 89 96 09/27/23 02:40 93 H 92 09/27/23 02:39 117 H 157/98 H 09/27/23 02:36 94 H 96 09/27/23 02:34 95 H 94 09/27/23 02:31 118 H 97 09/27/23 02:30 18 09/27/23 02:30 36.8 C 18 09/27/23 02:26 100 H 96 09/27/23 02:21 112 H 97 09/27/23 02:19 131 H 93 09/27/23 02:16 106 H 97 09/27/23 02:11 90 96 09/27/23 02:10 97 H 93 09/27/23 02:09 92 H 105/55 L 09/27/23 02:06 85 96 09/27/23 02:01 101 H 96 09/27/23 01:56 102 H 97 09/27/23 01:55 88 18 97 09/27/23 01:53 101 H 109/64 09/27/23 01:51 113 H 98 09/27/23 01:50 18 09/27/23 01:50 36.5 C 18 09/27/23 01:46 94 H 96 09/27/23 01:41 92 H 97 09/27/23 01:39 88 110/63 09/27/23 01:36 85 96 09/27/23 01:31 102 H 98 09/27/23 01:26 102 H 98 09/27/23 01:25 80 18 96/53 L 09/27/23 01:23 99 H 130/77 09/27/23 01:21 114 H 97 09/27/23 01:18 97 H 122/75 09/27/23 01:16 98 09/27/23 01:16 117 H 09/27/23 01:16 109 H 89 L 09/27/23 01:15 37.2 C 09/27/23 01:13 115 H 132/86 09/27/23 01:12 37.1 C 18 132/86 09/27/23 01:11 101 H 98 09/27/23 01:08 107 H 133/81 09/27/23 01:06 108 H 96 09/27/23 01:02 103 H 116/75 09/27/23 01:01 112 H 98 09/27/23 00:58 116 H 108/68 05/21/24 00:57 124 H 93 09/27/23 00:56 122 H 98 09/27/23 00:55 98 H 18 95 09/27/23 00:51 127 H 99 09/27/23 00:46 117 H 97 09/27/23 00:43 109 H 134/75 09/27/23 00:41 105 H 98 09/27/23 00:40 36.5 C 98 H 18 95 09/27/23 00:38 125 H 123/73 09/27/23 00:36 127 H 98 09/27/23 00:33 117 H 133/87 09/27/23 00:31 123 H 99 09/27/23 00:26 124 H 98 09/27/23 00:25 86 18 98 09/27/23 00:23 128/62 09/27/23 00:21 109 H 100 09/27/23 00:18 108 H 117/63 09/27/23 00:16 115 H 100 09/27/23 00:12 18 09/27/23 00:12 37.1 C 18 09/27/23 00:11 100 09/27/23 00:11 108 H 09/27/23 00:11 110 H 122/74 09/27/23 00:10 86 18 110/57 L 09/27/23 00:09 103 H 135/76 09/27/23 00:08 37.1 C 18 09/27/23 00:06 120 H 100 09/27/23 00:01 112 H 127/65 100 09/27/23 00:00 104 H 125/69 09/26/23 23:57 90 126/65 09/26/23 23:56 95 H 100 09/26/23 23:55 18 09/26/23 23:55 90 120/72 09/26/23 23:54 101 H 119/66 09/26/23 23:51 120 H 100 09/26/23 23:47 82 105/81 09/26/23 23:46 122 H 100 09/26/23 23:41 131 H 100 09/26/23 23:36 129 H 100 09/26/23 23:31 133 H 100 09/26/23 23:30 36.9 C 134 H 111/59 L 09/26/23 23:29 132 H 20 0524 23:29 180/108 H 09/26/23 23:26 139 H 100 09/26/23 23:25 131 H 117/55 L 09/26/23 23:22 141 H 84/62 L 09/26/23 23:21 136 H 100 09/26/23 23:19 130 H 82/57 L 09/26/23 23:16 138 H 100 09/26/23 23:15 137 H 85/52 L 09/26/23 23:11 145 H 100 09/26/23 23:06 159 H 100 09/26/23 23:01 130 H 98 09/26/23 22:56 112 H 97 09/26/23 22:53 106 H 128/88 09/26/23 22:52 100 H 134/83 09/26/23 22:51 94 H 96 09/26/23 22:46 114 H 97 09/26/23 22:42 112 H 92 09/26/23 22:41 93 H 96 09/26/23 22:36 95 H 96 09/26/23 22:35 107 H 88 L 09/26/23 22:31 93 H 96 09/26/23 22:30 18 09/26/23 22:30 18 09/26/23 22:27 97 H 89 L 09/26/23 22:26 90 97 09/26/23 22:24 80 171/65 H 09/26/23 22:21 85 83 L 09/26/23 22:16 83 96 09/26/23 22:15 93 H 20 89 L 09/26/23 22:11 80 95 09/26/23 22:09 86 91 09/26/23 22:08 83 121/57 L 09/26/23 22:06 75 97 09/26/23 22:03 98 H 89 L 09/26/23 22:01 86 97 09/26/23 22:00 18 09/26/23 22:00 18 09/26/23 21:56 82 97 09/26/23 21:53 78 132/64 09/26/23 21:51 82 97 09/26/23 21:46 92 H 87 L 09/26/23 21:45 92 H 18 96 09/26/23 21:40 93 H 93 09/26/23 21:38 90 144/97 H 93 05/24 21:35 93 H 96 0524 21:31 97 H 93 0524 21:30 92 H 18 97 0524 21:25 95 H 99 0524 21:23 90 114/58 L 0524 21:20 94 H 98 09/26/23 21:15 36.8 C 86 98 09/26/23 21:10 92 H 97 09/26/23 21:08 94 H 113/59 L 09/26/23 21:05 95 H 97 05 21:00 90 18 98 05 20:55 94 H 96 0524 20:53 87 111/70 05 20:50 92 H 97 09/26/23 20:45 93 H 96 0524 20:40 97 0524 20:40 97 H 0524 20:40 98 H 132/88 05 20:35 100 H 96 24 20:30 91 H 18 96 05 20:25 97 H 97 0524 20:23 83 137/61 05 20:20 77 97 05 20:19 103 H 91 09/26/23 20:15 100 H 18 98 09/26/23 20:11 81 128/60 05 20:10 106 H 96 24 20:05 91 H 98 24 20:03 99 H 94 09/26/23 20:00 85 20 98 05 19:55 98 H 99 09/26/23 19:50 101 H 92 0524 19:45 87 98 0524 19:44 95 H 87 L 0524 19:40 100 H 100 0524 19:38 84 130/80 052024 19:35 83 98 052024 19:30 94 H 18 100 0524 19:25 106 H 100 0524 19:23 88 128/75 0524 19:20 106 H 98 0524 19:15 88 100 0524 19:10 37.0 C 18 09/26/23 19:10 Room Air 09/26/23 19:10 89 99 09/26/23 19:09 93 H 145/84 H 09/26/23 19:05 84 100 09/26/23 19:00 91 H 100 09/26/23 18:55 82 100 09/26/23 18:53 76 112/58 L 09/26/23 18:50 82 100 09/26/23 18:45 85 100 09/26/23 18:40 78 100 09/26/23 18:39 80 118/64 09/26/23 18:35 86 100 PG Care Time/CCT Total # of Minutes Spent Total Time Spent with Patient: Total time spent is greater than 50% in coordination of care (as documented) at patient's floor/unit and/or counseling patient: Coding Level of Care Code None
[2023-09-27 06:45] LABS: Hematocrit (blood only) 30.4 % (37.0-47.0); Hemoglobin 10.3 g/dl (12.0-16.0); Mean Corpuscular Hemoglobin 28.1 pg (25.0-34.0); Mean Corpuscular Hgb Conc 33.9 g/dL (32.0-36.0); Mean Corpuscular Volume 83.1 fL (80.0-100.0); Mean Platelet Volume 10.6 fL (9.4-12.4); Platelet Count 233 K/uL (130-400); RDW Standard Deviation 41.9 fL (36.4-46.3); Red Blood Count 3.66 M/uL (4.20-5.40)
--- NOTE | 2023-09-27 07:20 | Obstetrical Progress Note ---
Date of Service September 27, 2023 Assessment & Plan Admission and Anticipated Discharge Date Admission Date: September 26, 2023 Subjective Phuong device removed in its entirety. Tolerated well. Will turn off epidural, plan to monitor for another 20 minutes and then take bustos catheter out. If doing well at that point, will allow to eat regular OB diet. No bleeding with removal of the PHUONG device. Results & Data Vital Signs (Past 12 Hours) Vital Signs Temp Pulse Resp BP Pulse Ox 09/27/23 07:11 100 H 98 09/27/23 07:09 92 H 120/69 09/27/23 07:06 110 H 97 09/27/23 07:01 98 H 97 09/27/23 06:58 108 H 87 L 09/27/23 06:56 108 H 96 09/27/23 06:51 106 H 97 09/27/23 06:46 97 H 97 09/27/23 06:41 98 H 94 09/27/23 06:38 93 H 124/59 L 09/27/23 06:36 101 H 95 09/27/23 06:31 92 H 99 09/27/23 06:26 93 H 99 09/27/23 06:23 100 H 119/65 09/27/23 06:21 107 H 96 09/27/23 06:16 104 H 97 09/27/23 06:11 104 H 98 09/27/23 06:08 107 H 117/63 09/27/23 06:06 110 H 92 09/27/23 06:01 114 H 96 09/27/23 05:56 95 H 97 09/27/23 05:53 100 H 124/60 09/27/23 05:52 100 H 88 L 09/27/23 05:51 99 H 96 09/27/23 05:46 96 H 97 09/27/23 05:41 109 H 98 09/27/23 05:38 109 H 119/59 L 09/27/23 05:36 94 H 98 09/27/23 05:31 110 H 97 09/27/23 05:26 92 H 96 09/27/23 05:23 103 H 125/60 09/27/23 05:21 96 H 93 09/27/23 05:16 93 H 98 09/27/23 05:11 92 H 98 09/27/23 05:08 90 118/63 09/27/23 05:06 107 H 97 09/27/23 05:01 84 96 09/27/23 04:56 115 H 96 09/27/23 04:53 86 119/59 L 09/27/23 04:51 93 H 97 09/27/23 04:46 88 98 09/27/23 04:41 97 H 98 09/27/23 04:38 103 H 124/59 L 09/27/23 04:36 99 H 99 09/27/23 04:31 97 H 98 09/27/23 04:29 99 H 93 09/27/23 04:26 96 H 98 09/27/23 04:24 86 132/60 09/27/23 04:23 101 H 92 09/27/23 04:21 103 H 95 09/27/23 04:16 92 H 97 09/27/23 04:15 36.9 C 18 09/27/23 04:15 18 09/27/23 04:15 36.9 C 18 09/27/23 04:11 95 H 96 09/27/23 04:08 83 93/54 L 09/27/23 04:07 82 92 09/27/23 04:06 82 97 09/27/23 04:01 86 95 09/27/23 03:58 93 H 93 09/27/23 03:56 107 H 96 09/27/23 03:53 85 91/50 L 09/27/23 03:51 88 95 09/27/23 03:47 81 94 09/27/23 03:46 83 96 09/27/23 03:41 88 97 09/27/23 03:38 80 96/53 L 09/27/23 03:36 83 96 09/27/23 03:31 98 H 95 09/27/23 03:26 86 98 09/27/23 03:23 86 110/57 L 09/27/23 03:21 87 97 09/27/23 03:16 103 H 94 09/27/23 03:13 85 94 09/27/23 03:11 86 94 09/27/23 03:09 88 124/58 L 09/27/23 03:06 88 95 09/27/23 03:04 86 94 09/27/23 03:01 88 95 09/27/23 02:58 88 94 09/27/23 02:56 89 93 09/27/23 02:54 86 117/58 L 09/27/23 02:52 88 94 09/27/23 02:51 89 95 09/27/23 02:47 87 94 09/27/23 02:46 86 95 09/27/23 02:41 89 96 09/27/23 02:40 93 H 92 09/27/23 02:39 117 H 157/98 H 09/27/23 02:36 94 H 96 09/27/23 02:34 95 H 94 09/27/23 02:31 118 H 97 09/27/23 02:30 18 09/27/23 02:30 36.8 C 18 09/27/23 02:26 100 H 96 09/27/23 02:21 112 H 97 09/27/23 02:19 131 H 93 09/27/23 02:16 106 H 97 09/27/23 02:11 90 96 09/27/23 02:10 97 H 93 09/27/23 02:09 92 H 105/55 L 09/27/23 02:06 85 96 09/27/23 02:01 101 H 96 09/27/23 01:56 102 H 97 09/27/23 01:55 88 18 97 09/27/23 01:53 101 H 109/64 09/27/23 01:51 113 H 98 09/27/23 01:50 18 09/27/23 01:50 36.5 C 18 09/27/23 01:46 94 H 96 09/27/23 01:41 92 H 97 09/27/23 01:39 88 110/63 09/27/23 01:36 85 96 09/27/23 01:31 102 H 98 09/27/23 01:26 102 H 98 09/27/23 01:25 80 18 96/53 L 09/27/23 01:23 99 H 130/77 09/27/23 01:21 114 H 97 09/27/23 01:18 97 H 122/75 09/27/23 01:16 98 09/27/23 01:16 117 H 09/27/23 01:16 109 H 89 L 09/27/23 01:15 37.2 C 09/27/23 01:13 115 H 132/86 09/27/23 01:12 37.1 C 18 132/86 09/27/23 01:11 101 H 98 09/27/23 01:08 107 H 133/81 09/27/23 01:06 108 H 96 09/27/23 01:02 103 H 116/75 09/27/23 01:01 112 H 98 09/27/23 00:58 116 H 108/68 09/27/23 00:57 124 H 93 09/27/23 00:56 122 H 98 09/27/23 00:55 98 H 18 95 09/27/23 00:51 127 H 99 09/27/23 00:46 117 H 97 09/27/23 00:43 109 H 134/75 09/27/23 00:41 105 H 98 09/27/23 00:40 36.5 C 98 H 18 95 09/27/23 00:38 125 H 123/73 09/27/23 00:36 127 H 98 09/27/23 00:33 117 H 133/87 09/27/23 00:31 123 H 99 09/27/23 00:26 124 H 98 09/27/23 00:25 86 18 98 09/27/23 00:23 128/62 09/27/23 00:21 109 H 100 09/27/23 00:18 108 H 117/63 09/27/23 00:16 115 H 100 09/27/23 00:12 18 09/27/23 00:12 37.1 C 18 09/27/23 00:11 100 09/27/23 00:11 108 H 09/27/23 00:11 110 H 122/74 09/27/23 00:10 86 18 110/57 L 09/27/23 00:09 103 H 135/76 09/27/23 00:08 37.1 C 18 09/27/23 00:06 120 H 100 09/27/23 00:01 112 H 127/65 100 09/27/23 00:00 104 H 125/69 09/26/23 23:57 90 126/65 09/26/23 23:56 95 H 100 09/26/23 23:55 18 09/26/23 23:55 90 120/72 09/26/23 23:54 101 H 119/66 09/26/23 23:51 120 H 100 09/26/23 23:47 82 105/81 05/24 23:46 122 H 100 09/26/23 23:41 131 H 100 09/26/23 23:36 129 H 100 09/26/23 23:31 133 H 100 09/26/23 23:30 36.9 C 134 H 111/59 L 09/26/23 23:29 132 H 20 09/26/23 23:29 180/108 H 09/26/23 23:26 139 H 100 09/26/23 23:25 131 H 117/55 L 09/26/23 23:22 141 H 84/62 L 09/26/23 23:21 136 H 100 09/26/23 23:19 130 H 82/57 L 09/26/23 23:16 138 H 100 09/26/23 23:15 137 H 85/52 L 09/26/23 23:11 145 H 100 09/26/23 23:06 159 H 100 09/26/23 23:01 130 H 98 09/26/23 22:56 112 H 97 09/26/23 22:53 106 H 128/88 09/26/23 22:52 100 H 134/83 09/26/23 22:51 94 H 96 09/26/23 22:46 114 H 97 09/26/23 22:42 112 H 92 09/26/23 22:41 93 H 96 09/26/23 22:36 95 H 96 09/26/23 22:35 107 H 88 L 09/26/23 22:31 93 H 96 09/26/23 22:30 18 09/26/23 22:30 18 09/26/23 22:27 97 H 89 L 09/26/23 22:26 90 97 09/26/23 22:24 80 171/65 H 09/26/23 22:21 85 83 L 09/26/23 22:16 83 96 09/26/23 22:15 93 H 20 89 L 09/26/23 22:11 80 95 09/26/23 22:09 86 91 09/26/23 22:08 83 121/57 L 09/26/23 22:06 75 97 09/26/23 22:03 98 H 89 L 09/26/23 22:01 86 97 09/26/23 22:00 18 09/26/23 22:00 18 09/26/23 21:56 82 97 05/20/24 21:53 78 132/64 0524 21:51 82 97 0524 21:46 92 H 87 L 0524 21:45 92 H 18 96 0524 21:40 93 H 93 0524 21:38 90 144/97 H 93 0524 21:35 93 H 96 0524 21:31 97 H 93 0524 21:30 92 H 18 97 0524 21:25 95 H 99 052024 21:23 90 114/58 L 24 21:20 94 H 98 0524 21:15 36.8 C 86 98 09/26/23 21:10 92 H 97 09/26/23 21:08 94 H 113/59 L 09/26/23 21:05 95 H 97 09/26/23 21:00 90 18 98 0524 20:55 94 H 96 24 20:53 87 111/70 0524 20:50 92 H 97 24 20:45 93 H 96 24 20:40 97 0524 20:40 97 H 0524 20:40 98 H 132/88 0524 20:35 100 H 96 24 20:30 91 H 18 96 0524 20:25 97 H 97 24 20:23 83 137/61 052024 20:20 77 97 0524 20:19 103 H 91 24 20:15 100 H 18 98 052024 20:11 81 128/60 052024 20:10 106 H 96 0524 20:05 91 H 98 052024 20:03 99 H 94 052024 20:00 85 20 98 052024 19:55 98 H 99 0524 19:50 101 H 92 052024 19:45 87 98 052024 19:44 95 H 87 L 0524 19:40 100 H 100 052024 19:38 84 130/80 052024 19:35 83 98 0520/24 19:30 94 H 18 100 09/26/23 19:25 106 H 100 09/26/23 19:23 88 128/75 09/26/23 19:20 106 H 98 PG Care Time/CCT Total # of Minutes Spent Total Time Spent with Patient: Total time spent is greater than 50% in coordination of care (as documented) at patient's floor/unit and/or counseling patient: Coding Level of Care Code None
[2023-09-27] MEDS ORDERED: Nursing to Pharmacy Communication SCH (09:15)
[2023-09-27] MEDS: PRENATAL VITAMIN 1 TAB PO SCH (09:22)
[2023-09-27] MEDS: DOCUSATE SODIUM 100 MG CAP PO SCH (09:23)
--- NOTE | 2023-09-27 09:38 | Anesthesia Procedure Note ---
Date of Service September 27, 2023 Anesthesia Post Epidural Note Vital Signs Vital Signs: Temp Pulse Resp BP Pulse Ox O2 Del Method 37.1 C 90 16 112/65 96 Room Air 09/27/23 07:24 09/27/23 09:11 09/27/23 07:24 09/27/23 09:11 09/27/23 08:01 09/26/23 19:10 Pain Intensity Right Hip: Pain Intensity: 6 Notes Mental Status: alert / awake / arousable and participated in evaluation Nausea / Vomiting: adequately controlled Pain: adequately controlled Airway Patency, RR, SpO2: stable & adequate BP & HR: stable & adequate Hydration State: stable & adequate Neuraxial Anesthesia: was administered and sensory block is resolving Anesthetic Complications: no major complications apparent and Pt Satisfied with anesthetic care Epidural: Removed without complications and With tip intact
[2023-09-27 12:21] LABS: Hematocrit (blood only) 29.8 % (37.0-47.0); Hemoglobin 10.1 g/dl (12.0-16.0); Mean Corpuscular Hemoglobin 28.4 pg (25.0-34.0); Mean Corpuscular Hgb Conc 33.9 g/dL (32.0-36.0); Mean Corpuscular Volume 83.7 fL (80.0-100.0); Mean Platelet Volume 10.5 fL (9.4-12.4); Platelet Count 235 K/uL (130-400); RDW Coefficient of Variation 14.2 % (11.5-14.5); RDW Standard Deviation 43.1 fL (36.4-46.3); Red Blood Count 3.56 M/uL (4.20-5.40); White Blood Count 28.26 K/ul (4.8-10.8)
[2023-09-27 12:41] LABS: Basophils # (auto) 0.07 K/uL (0.00-0.20); Basophils % (auto) 0.2 %; Eosinophils # (auto) 0.02 K/uL (0.00-0.50); Eosinophils % (auto) 0.1 %; Immature Granulocytes # (auto) 0.27 K/uL (0.01-0.20); Lymphocytes % (auto) 6.4 %; Monocytes # (auto) 2.06 K/uL (0.11-0.59); Monocytes % (auto) 7.3 %; Neutrophils # (auto) 24.04 K/uL (1.40-6.50)
[2023-09-27] MEDS: IBUPROFEN 600 MG TAB PO PRN (13:29)
--- NOTE | 2023-09-28 06:24 | Obstetrical Progress Note ---
Date of Service <Martín Tomlinosn MD - Last Filed: 09/28/23 07:48> September 28, 2023 Assessment & Plan <Martín Tomlinson MD - Last Filed: 09/28/23 07:48> (1) hemorrhage: (2) (spontaneous vaginal delivery): Plan 27 yo , status post on 09/27/23, w/ 3rd degree laceration and PPH. - Pt doing well clinically. Feels well today. Eating well, voiding well, ambulating well. Pain well controlled with PRN pain meds. - Routine care -- OOB, ambulation, diet progression as tolerated Vital Signs reviewed and WNL. (Tmax at 36.7), with the exception of persistent mild tachycardia since delivery. Hemoglobin Reviewed. 12.4 (09/25, morning), 11.1 (09/25, 11 pm), 12.1 (09/26), 10.3 (09/26, noon), 8.1 (today). Pt transfused w/ 2 units of PRBC's after delivery, due to PPH. With few S/S of anemia today--no fatigue, weakness, dyspnea, though pt continues to have mild tachycardia, low normotensive BP readings. WBC elevated: 15.6 -> 23.7 -> 28.3 -> 19.1 (today) Blood Type: O+, GBS-, Rubella Immune. Encourage ambulation, monitor and control pain with Motrin PRN, resume regular diet, monitor lochia. Breast feeding encouraged. After discharge will have 6 week follow-up with Dr. Blanco. Pt counselled on discharge instructions, but advised to stay an additional night before going home. <Jennifer Burrows MD, FACOG - Last Filed: 09/29/23 07:57> (1) hemorrhage: (2) (spontaneous vaginal delivery): Subjective <Martín Tomlinson MD - Last Filed: 09/28/23 07:48> Ambulation: ambulating normally Voiding: no voiding problems Passing Gas:: Yes Diet Tolerance:: regular diet Lochia:: Moderate Current Pain Level(1-10): 3 Constitutional: no fever, no chills or no body aches Eyes: no diplopia or no worsening vision Ear, Nose, Mouth, Throat: no nasal congestion, no nasal discharge or no sore throat Respiratory: no cough, no chest congestion or no dyspnea Cardiovascular: no chest pain or no palpitations Gastrointestinal: + abdominal pain (cramping pain), + vomiting (vomited after delivery last night) and + diarrhea/loose stools (diarrhea at ~ 3 am); no nausea or no constipation (last BM this morning; has been on docusate and Miralax) Genitourinary (female): no dysuria, no urinary frequency (pt w/ Carrillo in place) or no urinary urgency Integumentary: no rash or no pruritus Neurologic: + localized weakness (unable to move l. leg, can only wiggle left toes), + tingling and + numbness (b/l numbness felt but worse on l. side); no headache(s) Physical Exam <Martín Tomlinson MD - Last Filed: 09/28/23 07:48> Constitutional WD/WN, vitals as above Respiratory normal respiratory effort, lungs clear to auscultation Cardiovascular RRR, no murmur, no edema Extremities: normal capillary refill and + pedal edema (+1 edema in feet, edema of ); no calf tenderness Gastrointestinal (Abdomen) Inspection/Auscultation: abdomen normal to inspection and normal bowel sounds Neurologic + does not move all extremities Psychiatric A+Ox3, euthymic affect Results & Data <Martín Tomlinson MD - Last Filed: 09/28/23 07:48> Vital Signs (Past 12 Hours) Vital Signs Temp Pulse Resp BP O2 Del Method 09/27/23 22:56 36.7 C 94 H 14 97/59 L Room Air 09/27/23 19:45 36.7 C 109 H 14 104/71 Room Air Supervising Physician <Jennifer Burrows MD, FACOG - Last Filed: 09/29/23 07:57> Co-Signing Physician Notes Resident Physician Supervision Note: I interviewed and examined the patient. Discussed with Dr. Glass and agree with findings and plan as documented in the note. Any exceptions or clarifications are listed here: [None] Documented By: Jennifer Burrows MD, FACOG
[2023-09-28 06:47] LABS: Basophils # (auto) 0.05 K/uL (0.00-0.20); Basophils % (auto) 0.3 %; Eosinophils # (auto) 0.06 K/uL (0.00-0.50); Eosinophils % (auto) 0.3 %; Hematocrit (blood only) 23.7 % (37.0-47.0); Hemoglobin 8.1 g/dl (12.0-16.0); Immature Granulocytes % (auto) 1.6 %; Lymphocytes # (auto) 2.58 K/uL (1.20-3.40); Lymphocytes % (auto) 13.5 %; Mean Corpuscular Hemoglobin 28.8 pg (25.0-34.0); Mean Corpuscular Hgb Conc 34.2 g/dL (32.0-36.0); Mean Corpuscular Volume 84.3 fL (80.0-100.0); Mean Platelet Volume 10.3 fL (9.4-12.4); Monocytes # (auto) 1.39 K/uL (0.11-0.59); Monocytes % (auto) 7.3 %; Neutrophils # (auto) 14.74 K/uL (1.40-6.50); Platelet Count 204 K/uL (130-400); RDW Coefficient of Variation 14.4 % (11.5-14.5); Red Blood Count 2.81 M/uL (4.20-5.40); White Blood Count 19.12 K/ul (4.8-10.8)
[2023-09-28 18:27] VITALS: RESP 18
[2023-09-28] MEDS: bisacodyL 5 MG TABEC PO SCH (21:00)
[2023-09-29 00:39] VITALS: TEMP 97.9
--- NOTE | 2023-09-29 06:17 | Obstetrical Progress Note ---
Date of Service <Martín Tomlinson MD - Last Filed: 09/29/23 08:36> September 29, 2023 Assessment & Plan <Martín Tomlinson MD - Last Filed: 09/29/23 08:36> (1) hemorrhage: (2) (spontaneous vaginal delivery): Plan 27 yo , status post on 09/27/23, w/ 3rd degree laceration and PPH. - Pt doing well clinically. Feels well today. Eating well, voiding well, ambulating well. Pain well controlled with PRN pain meds. - Routine care -- OOB, ambulation, diet progression as tolerated Vital Signs reviewed and WNL. (Tmax at 36.7), with the exception of persistent mild tachycardia since delivery. Hemoglobin Reviewed. 12.4 (09/25, morning), 11.1 (09/25, 11 pm), 12.1 (09/26), 10.3 (09/26, noon), 8.1 (09/27), 8.9 (today). Pt transfused w/ 2 units of PRBC's after delivery, due to PPH. With few S/S of anemia today--no fatigue, weakness, dyspnea, though pt continues to have mild tachycardia. WBC elevated: 15.6 -> 23.7 -> 28.3 -> 19.1 -> 14.2 (today), patient w/out fevers, chills, feelings of feverishness, or other signs of systemic infection Blood Type: O+, GBS-, Rubella Immune. Encourage ambulation, monitor and control pain with Motrin PRN, resume regular diet, monitor lochia. Breast feeding encouraged. After discharge will have 6 week follow-up with Dr. Blanco. Pt counselled on discharge instructions, but advised to stay an additional night before going home. <Sarah Lobato MD, FACOG - Last Filed: 09/29/23 11:33> (1) hemorrhage: (2) (spontaneous vaginal delivery): Subjective <Martín Tomlinson MD - Last Filed: 09/29/23 08:36> Ambulation: ambulating normally Voiding: no voiding problems Passing Gas:: Yes Diet Tolerance:: regular diet Lochia:: Moderate Feeding Type:: breast feeding Current Pain Level(1-10): 3 (cramping pain w/ ; perineal pain from 3rd deg lac) Constitutional: no fever, no chills or no body aches Eyes: no diplopia or no worsening vision Ear, Nose, Mouth, Throat: no nasal congestion, no nasal discharge or no sore throat Respiratory: no cough, no chest congestion or no dyspnea Cardiovascular: no chest pain or no palpitations Gastrointestinal: + abdominal pain (cramping pain); no nausea, no vomiting, no c onstipation (last BM this morning; normal) or no diarrhea/loose stools Genitourinary (female): no dysuria, no urinary frequency (pt w/ Carrillo in place) or no urinary urgency Integumentary: no rash or no pruritus Neurologic: no localized weakness, no tingling, no numbness or no headache(s) Physical Exam <Martín Tomlinson MD - Last Filed: 09/29/23 08:36> Constitutional WD/WN, vitals as above Respiratory normal respiratory effort, lungs clear to auscultation Cardiovascular RRR, no murmur, no edema Extremities: normal capillary refill and + pedal edema (+1 edema in feet, edema of ); no calf tenderness Gastrointestinal (Abdomen) Inspection/Auscultation: abdomen normal to inspection, normal bowel sounds and + significant pannus (gravid uterus) Neurologic + does not move all extremities Psychiatric A+Ox3, euthymic affect Genitourinary Manual OB Exam: + cervical dilation 4 cm, + cervical effacement 50% and + station -2 OB Exam Monitor Tracing: + external FHT monitor used, + external uterine monitor used, + category I and + normal FHT variability Results & Data <Martín Tomlinson MD - Last Filed: 09/29/23 08:36> Vital Signs (Past 12 Hours) Vital Signs Temp Pulse Resp BP 09/29/23 00:20 36.6 C 18 106/67 09/28/23 21:00 36.7 C 91 H 18 105/63 Supervising Physician <Sarah Lobato MD, FACOG - Last Filed: 09/29/23 11:33> Co-Signing Physician Notes Resident Physician Supervision Note: I interviewed and examined the patient. Discussed with Dr. Tomlinson and agree with findings and plan as documented in the note. Any exceptions or clar ifications are listed here: [None] Documented By: Sarah Lobato MD, FACOG
[2023-09-29 07:50] LABS: Hematocrit (blood only) 27.3 % (37.0-47.0); Hemoglobin 8.9 g/dl (12.0-16.0); Mean Corpuscular Hemoglobin 27.9 pg (25.0-34.0); Mean Corpuscular Hgb Conc 32.6 g/dL (32.0-36.0); Mean Corpuscular Volume 85.6 fL (80.0-100.0); Mean Platelet Volume 10.3 fL (9.4-12.4); Platelet Count 306 K/uL (130-400); RDW Coefficient of Variation 14.6 % (11.5-14.5); RDW Standard Deviation 45.5 fL (36.4-46.3); Red Blood Count 3.19 M/uL (4.20-5.40); White Blood Count 14.18 K/ul (4.8-10.8)
[2023-09-29 08:01] VITALS: BP 126/66; PULSE 85; O2SAT 99
--- NOTE | 2023-10-01 15:55 | Coding Query ---
ANEMIA To promote full compliance with coding requirements relating to patient care, physician participation is requested in all cases of ssis architect uncertainty. Please assist us with the question(s) below: Coding Question(s): The record reflects the following clinical findings: Hemoglobin Reviewed. 12.4 (09/25, morning), 11.1 (09/25, 11 pm), 12.1 (09/26), 10.3 (09/26, noon), 8.1 (09/27), 8.9 (today). Pt transfused w/ 2 units of PRBC's after delivery, due to PPH. With few S/S of anemia today--no fatigue, weakness, dyspnea, though pt continues to have mild tachycardia. If these findings are indicative of anemia, please specify the known or suspected type by placing an "X" within the parenthesis (x). If other, please document type. Examples are: ( ) Acute blood loss anemia ( ) Acute Postoperative blood loss anemia ( ) Acute postoperative anemia due to dilutional fluids ( ) Chronic blood loss anemia ( ) Iron deficient anemia ( ) Anemia, unspecified or other ( ) Other: (please specify) Suspect the anemia that this other doctor documented was from her hemorrhage, however this note was from the day after I saw her. Thank you for your time, KATHRYN Marks, FARZAD SALAZAR
== END 2023-09-29 12:25 | disposition home or self-care (01) | DRG 768 ==
LOC: 4S1 07:31 → 4E2 09-27 12:13